=== PATIENT | male | born 1980 | race Caucasian/White ===

== ENCOUNTER 2024-08-01 01:07 | Emergency (ER) | payer OTHER, SELFPAY ==
--- NOTE | ~2024-08-01 | US_ITS ---
Limited Abdominal Sonogram: Real-time sonographic imaging of the right upper quadrant was performed. Clinical History: Evaluate gallbladder Findings: The liver appears normal with no evidence of mass lesion or bile duct dilatation. Main por young vein demonstrates normal direction of flow. The gallbladder is well distended, and contains small echogenic gallstones. No definite gallbladder wall thickening. The common bile duct measures 6 mm. The visualized pancreas, aorta, and IVC are unremarkable. Impression: Cholelithiasis. Reviewed, dictated and finalized at location M. Impression: Cholelithiasis.
--- NOTE | ~2024-08-01 | CT_ITS ---
Clinical Indication: Chest pain, epigastric pain CT Scan of the Chest, Abdomen, and Pelvis with Contrast: Technique: Contiguous sections were acquired throughout the chest, abdomen, and pelvis after intraven ous administration of 100 cc of Omnipaque 350. Dose reduction technique was used on this scan by liliana molina automated exposure control and iterative reconstruction technique. The dose-length product (DL P) was 2299.14 mGy-cm. Findings: There is no evidence of any significant mediastinal, hilar or axillary lymphadenopathy. The mediastin al soft tissues appear normal. No pulmonary embolus seen. No aortic aneurysm or dissection. There is no evidence of pleural or pericardial effusion. The lungs are clear. No pulmonary nodules or infiltrates are noted. The liver, spleen, pancreas, adrenals and kidneys are within normal limits. Gallbladder is distended, questionable minimal wall thickening. No evidence of aortic aneurysm resection. No lymphadenopathy. No bowel obstruction or bowel wall thickening. There is no evidence to suggest acute appendicitis. Urinary bladder is unremarkable. Prostate gland and seminal vesicles are unremarkable. No ascites. Impression: Distended gallbladder with questionable minimal wall thickening. Consider ultrasound to further evalu ate for gallbladder pathology. No other significant findings. No aortic aneurysm or dissection. Reviewed, dictated and finalized at location . Impression: Distended gallbladder with questionable minimal wall thickening. Consider ultra sound to further evaluate for gallbladder pathology. No other significant findings. No aortic aneurysm or dissection.
[2024-08-01 01:10] VITALS: BP 169/87; PULSE 83; RESP 24; TEMP 36.8; O2SAT 100
[2024-08-01 02:08] LABS: Basophils Absolute Auto 0.1 K/mm3 (0.0-0.1); Basophils Percent Auto 0.5 % (0.2-1.2); Eosinophils Absolute Auto 0.1 K/mm3 (0-0.3); Eosinophils Percent Auto 1.2 % (0-4.4); Hematocrit 41.4 % (42.0-52.0); Hemoglobin 14.2 g/dL (14.0-18.0); Immature Granulocyte Absolute 0.05 K/mm3 (0.00-0.031); Immature Granulocyte Percent A 0.5 % (0-0.5); Lymphocytes Absolute Auto 1.69 K/mm3 (0.9-3.2); Lymphocytes Percent Auto 16.5 % (18.3-44.2); Mean Corpuscular HGB Conc 34.3 g/dl (32-36); Mean Corpuscular Hemoglobin 29.9 pg (26-34); Mean Corpuscular Volume 87.2 fl (80-100); Mean Platelet Volume 11.1 fl (7.4-10.4); Monocytes Absolute Auto 0.5 K/mm3 (0.1-0.6); Neutrophils Absolute Auto 7.9 K/mm3 (1.3-6.7); Neutrophils Percent Auto 76.3 % (45.5-73.1); Platelet Count Result 264 k/mm3 (150-375); Red Blood Count 4.75 M/mm3 (4.6-6.20); Red Cell Distribution Width 12.3 % (11.5-14.5); White Blood Count 10.3 K/mm3 (4.5-10.0)
[2024-08-01 02:13] LABS: Add Urine Microscopic? YES; Appearance Urine Clear (Clear); Bacteria Urine None Seen /hpf; Bilirubin Urine Negative (Negative); Blood Urine Negative (Negative); Color Urine Yellow (Yellow); Glucose Urine UA Trace mg/dL (Negative); Ketones Urine 2+ mg/dL (Negative); Leukocyte Esterase Ur Negative LEU/UL (Negative); Nitrate Urine Negative (Negative); Non Pathogenic Casts 0-2; Protein Urine 1+ mg/dL (Negative); RBC Urine 0-2 /hpf (0-2); Specific Grav Ur 1.032 (1.001-1.035); Squamous Epithelial Cell Urine None Seen /hpf (Few); WBC Urine 0-5 /hpf (0-3); pH Urine 6.5 (5.0-9.0)
[2024-08-01 02:19] LABS: Alanine Aminotransferase 27 U/L (6-50); Albumin Level 4.8 g/dL (3.5-5.1); Alkaline Phosphatase 102 U/L (38-126); Anion Gap 16 mmol/L (4-12); Aspartate Amino Transferase 24 U/L (17-59); Bilirubin,Total 0.5 mg/dL (0.2-1.3); Blood Urea Nitrogen 25 mg/dL (9-20); Calcium 9.4 mg/dL (8.4-10.2); Carbon Dioxide 23 mmol/L (22-30); Chloride 99 mmol/L (98-107); Estimated CRCL calculation 106 ml/min; Estimated Glomerular Filt Rate > 60; Glucose 168 mg/dL (65-110); Lipase 95 U/L (23-300); Potassium 3.3 mmol/L (3.4-5.0); Sodium 138 mmol/L (137-145)
[2024-08-01 03:25] VITALS: BP 163/99; PULSE 72; RESP 20; TEMP 36.9; O2SAT 100
[2024-08-01 05:27] VITALS: BP 138/71; PULSE 66; RESP 12; TEMP 36.6; O2SAT 100
--- NOTE | 2024-08-01 05:37 | ECG_ITS ---
Test Date: 2024-08-01 06:09:52 Measurements Intervals [place] Rate: 68 P: 52 OK: 183 QRS: 15 QRSD: 105 T: 22 QT: 415 QTc: 443 Interpretive Statements SINUS RHYTHM DELAYED PRECORDIAL R/S TRANSITION CONSIDER INFERIOR INFARCT, AGE INDETERMINATE ABNORMAL ECG No previous ECG available for comparison Electronically Signed On 08-01-2024 06:32:48 CDT by Black Eugene D.O.
[2024-08-01] MEDS: ONDANSETRON INJ 4 MG/2 ML VIAL IV PUSH (05:47)
[2024-08-01] MEDS: SODIUM CHLORIDE 0.9% IV 1,000 ML 999 ML IV CONT (05:47)
[2024-08-01] MEDS: FAMOTIDINE 20 MG/2 ML VIAL IV PUSH (05:48)
[2024-08-01] MEDS: MAG HYDROX/AL HYDROX/SIMETH 30 ML UDC PO (05:48)
[2024-08-01 06:09] LABS: NT Pro B Type Natriuretic Pept 25 pg/mL (19.9-100); Troponin I < 0.012 ng/mL (0.000-0.034)
--- NOTE | 2024-08-01 06:28 | ED.GENADULT ---
HPI - General Adult General Chief complaint: Abdominal Pain <Ede Sullivan MD - Last Filed: 08/01/24 07:27> Stated complaint: back pain <Ede Sullivan MD - Last Filed: 08/01/24 07:27> Time Seen by Provider: 08/01/24 01:52 <Ede Sullivan MD - Last Filed: 08/01/24 07:27> History of Present Illness HPI narrative: This is a 44-year-old male presenting ED with a chief complaint of epigastric pain. Patient says that at 1030 p.m. he developed epigastric pain was a cramping sensation. It radiates straight through to his back. It is intense and constant. It is positional when he leans forward his abdomen hurts between his back he feels in his back. He has had this 3 times in the past but has not sought medical care. Associated with significant nausea and vomiting as well as belching. Denies fevers or chills. After the initial interview the patient said that he was also experiencing some chest heaviness on the left side of his chest. <Ede Sullivan MD - Last Filed: 08/01/24 07:27> Related Data Allergies/adverse reactions: Allergies Allergy/AdvReac Type Severity Reaction Status Date / Time No Known Allergies Allergy Unverified 01/12/19 13:26 <Ede Sullivan MD - Last Filed: 08/01/24 07:27> [facility] Family History Family History: Family History Mother Patient's mother is in good health Father Patient's father is in good health Sibling Patient's brother is in good health Other Hypertension <Ede Sullivan MD - Last Filed: 08/01/24 07:27> Social History Social History: Social History Smoking status: Never smoker Alcohol intake: current <Ede Sullivan MD - Last Filed: 08/01/24 07:27> Exam Narrative: APPEARANCE: No apparent distress. Head: atraumatic. EYES: EOMI, NOSE: Atraumatic NECK: Trachea midline RESPIRATORY: No increased rate of breathing clear to auscultation CARDIOVASCULAR: RRR, no peripheral edema ABDOMINAL: Obese, tenderness in the epigastric area MUSCULOSKELETAl: No obvious deformities NEURO: Alert. Moving 4/4 extremities SKIN:: Warm, dry. Normal color PSYCHIATRIC: Normal affect <Ede Sullivan MD - Last Filed: 08/01/24 07:27> Course Reevaluation(s) Reevaluation #1: patient pending right upper quadrant ultrasound. This shows gallstones without any signs of cholecystitis. Results discussed with patient and return precautions and follow-up instructions provided to patient <Verito Chaparro MD - Last Filed: 08/01/24 08:01> Vital Signs Vital signs: Vital Signs Temperature 98.2 F 08/01/24 01:10 Pulse Rate 83 08/01/24 01:10 Respiratory Rate 24 H 08/01/24 01:10 Blood Pressure 169/87 H 08/01/24 01:10 Pulse Oximetry 100 08/01/24 01:10 Oxygen Delivery Room Air 08/01/24 01:10 Temperature 98 F 08/01/24 05:27 Pulse Rate 90 08/01/24 07:28 Respiratory Rate 13 08/01/24 07:28 Blood Pressure 175/94 H 08/01/24 07:28 Pulse Oximetry 100 08/01/24 07:28 Oxygen Delivery Room Air 08/01/24 01:10 <Ede Sullivan MD - Last Filed: 08/01/24 07:27> Vital Signs Temperature 98.2 F 08/01/24 01:10 Pulse Rate 83 08/01/24 01:10 Respiratory Rate 24 H 08/01/24 01:10 Blood Pressure 169/87 H 08/01/24 01:10 Pulse Oximetry 100 08/01/24 01:10 Oxygen Delivery Room Air 08/01/24 01:10 Temperature 98 F 08/01/24 05:27 Pulse Rate 90 08/01/24 07:28 Respiratory Rate 13 08/01/24 07:28 Blood Pressure 175/94 H 08/01/24 07:28 Pulse Oximetry 100 08/01/24 07:28 Oxygen Delivery Room Air 08/01/24 01:10 <Verito Chaparro MD - Last Filed: 08/01/24 08:01> Medical Decision Making MDM Narrative Medical decision making narrative: -Course: 44-year-old male presenting with epigastric and chest pain radiating to his back. Given a GI cocktail with no improvement
[2024-08-01 07:28] VITALS: BP 175/94; PULSE 90; RESP 13; O2SAT 100
[2024-08-01 07:36] LABS: Troponin I < 0.012 ng/mL (0.000-0.034)
[2024-08-01 08:13] VITALS: BP 166/87; PULSE 66; RESP 20; TEMP 36.7; O2SAT 99
== END 2024-08-01 08:14 | disposition home or self-care (01) ==
PROVIDERS: Emergency Medicine; Emergency Provider Emergency Medicine; PCP Family Medicine
DX: K29.70 Gastritis, unspecified, without bleeding (principal); K80.20 Calculus of gallbladder without cholecystitis without obstruction; E66.9 Obesity, unspecified; Z68.41 Body mass index [BMI] 40.0-44.9, adult; R94.31 Abnormal electrocardiogram [ECG] [EKG]
CPT/HCPCS: 36415; 71275; 74174; 76705; 80053; 81001; 83690; 83880; 84484; 85025; 93005; 96361; 96374; 96375; 99284; A9270; J2405; J7030; Q9967